=== PATIENT | female | born 1960 | race Caucasian/White ===

== ENCOUNTER 2020-11-10 14:44 | Emergency (ER) | payer MEDICAID ==
[~2020-11-10] VITALS: Ht 167.6 cm; Wt 90.7 kg
[2020-11-10 14:46] VITALS: Ht 167.6 cm; Wt 90.7 kg
[2020-11-10 15:30] VITALS: BP 162/68
[2020-11-10] MEDS ORDERED: PROAIR HFA8.5 GM INH (15:32)
[2020-11-10] MEDS ORDERED: ZITHROMAX Z-PA250 MG PO (15:32)
[2020-11-10] MEDS ORDERED: DELTASONE20 MG PO (15:32)
== END 2020-11-10 15:30 | disposition home or self-care (01) ==
LOC: ED 14:44
DX: J20.9 Acute bronchitis, unspecified (principal); R07.89 Other chest pain; J45.909 Unspecified asthma, uncomplicated; E11.9 Type 2 diabetes mellitus without complications

== ENCOUNTER 2020-11-11 01:07 | Emergency (ER) | payer MEDICAID ==
[~2020-11-11] VITALS: Ht 162.6 cm; Wt 113.4 kg
[~2020-11-11 01:07] MED LIST: DELTASONE20 MG PO; PROAIR HFA8.5 GM INH; ZITHROMAX Z-PA250 MG PO
[2020-11-11 01:37] VITALS: Ht 162.6 cm; Wt 113.4 kg
[2020-11-11 03:32] VITALS: BP 127/77
== END 2020-11-11 03:32 | disposition home or self-care (01) ==
LOC: ED 01:07
DX: E11.65 Type 2 diabetes mellitus with hyperglycemia (principal); R42 Dizziness and giddiness; I10 Essential (primary) hypertension; J45.909 Unspecified asthma, uncomplicated
CPT/HCPCS: 82962